=== PATIENT | male | born 1995 | race Caucasian/White ===

== ENCOUNTER 2020-09-18 11:27 | Emergency (ER) | payer MEDICAID ==
[~2020-09-18] VITALS: Ht 188 cm; Wt 90.9 kg
[~2020-09-18 11:27] MED LIST: BUMEX 1MG TA1 MG/TA1 PO; CIPRO 500MG TA500 MG PO; KLOR-CON M2020 MEQ PO; NEURONTIN300 MG/CAP PO; PREDNISONE20 MG PO; RESTORIL 1515 MG/CAP PO; ULTRAM 50MG TAB50 MG PO
[2020-09-18 12:48] LABS: MEAN CELL VOLUME 65 fl (80.0-100.0); MEAN CORPUSCULAR HGB CONC 28 g/dl (33.0-37.0); PLATELET COUNT 185 K/mm3 (130-400); RED BLOOD COUNT 3.87 M/mm3 (4.20-5.60); REDCELL DISTRIBUTION WIDTH-CV 23.4 % (11.5-14.5)
[2020-09-18 12:49] LABS: ALBUMIN 2.9 gm/dL (3.5-5.0); BILIRUBIN,TOTAL 0.7 mg/dL (0.0-1.0); CALCIUM 8.3 mg/dL (8.4-10.2); CREATININE, serum 0.87 (0.66-1.25); POTASSIUM 3.3 mmol/L (3.4-5.0); TOTAL PROTEIN 6.5 gm/dL (6.4-8.2)
[2020-09-18 12:56] LABS: HEMATOCRIT 25.3 % (42.0-52.0); HEMOGLOBIN 7.1 g/dl (13.5-18.0); MEAN CORPUSCULAR HEMOGLOBIN 18 pg (27.0-31.0)
[2020-09-18 13:48] LABS: BAND 14 % (0-10); LYMPHOCYTE 16 % (20.0-51.0); NEUTROPHILS 67 % (42.0-75.2)
[2020-09-18 13:51] LABS: ANISOCYTOSIS 3+; HYPOCHROMIA 3+; MICROCYTOSIS 2+; PLATELET ESTIMATE NORMAL (NORMAL)
[2020-09-18 17:02] VITALS: BP 118/75; PULSE 121; TEMP 100.7
[2020-09-18 17:09] VITALS: BP 131/72; PULSE 116; TEMP 100.5
[2020-09-18 17:14] VITALS: BP 134/70; PULSE 121; TEMP 100.4
[2020-09-18 17:20] VITALS: BP 126/71; PULSE 117; TEMP 99.3
[2020-09-18 17:25] VITALS: BP 132/70; PULSE 117; TEMP 99.2
[2020-09-18 17:53] VITALS: BP 126/73; PULSE 73
== END 2020-09-18 18:10 | disposition short-term general hospital (02) ==
LOC: COL.ER 11:27
PROVIDERS: Family Medicine
DX: L02.01 Cutaneous abscess of face (principal); L03.211 Cellulitis of face; R60.0 Localized edema; T81.49XA Infection following a procedure, other surgical site, initial encounter; F17.210 Nicotine dependence, cigarettes, uncomplicated
CPT/HCPCS: J2543; J3370; J7050; J7120; P9016

== ENCOUNTER 2020-10-23 17:52 | Emergency (ER) | payer MEDICAID ==
[2020-10-23 18:24] LABS: BASO % 0.1 % (0.0-2.0); EOS % 0.3 % (0-4.0); GRAN # 6.2 (1.4-6.5); GRAN % 84.8 % (42.2-75.2); LYMPH # 0.5 (1.2-3.4); LYMPH % 6.7 % (20.0-51.0); MEAN CELL VOLUME 69 fl (80.0-100.0); MEAN CORPUSCULAR HGB CONC 28 g/dl (33.0-37.0); MONO # 0.5 (0.1-0.6); MONO % 7.4 % (1.7-9.3); PLATELET COUNT 498 K/mm3 (130-400); RED BLOOD COUNT 3.87 M/mm3 (4.20-5.60); REDCELL DISTRIBUTION WIDTH-CV 25.4 % (11.5-14.5)
[2020-10-23 18:29] LABS: HEMATOCRIT 26.7 % (42.0-52.0); HEMOGLOBIN 7.4 g/dl (13.5-18.0); MEAN CORPUSCULAR HEMOGLOBIN 19 pg (27.0-31.0)
[2020-10-23 18:37] LABS: INR 1.3 (0.8-3.0)
[2020-10-23 18:40] LABS: ALBUMIN 3.7 gm/dL (3.5-5.0); BILIRUBIN,TOTAL 0.5 mg/dL (0.0-1.0); CALCIUM 9.3 mg/dL (8.4-10.2); CREATININE, serum 0.79 (0.66-1.25); POTASSIUM 4.2 mmol/L (3.4-5.0); TOTAL PROTEIN 7.2 gm/dL (6.4-8.2)
[2020-10-23 19:25] LABS: COLLECTION METHOD CLEAN CATCH
[2020-10-23 19:49] LABS: MUCOUS Present /lpf; PH 6 (5-8); SQUAMOUS EPITHELIAL None Seen /hpf; URINE APPEARANCE Clear; URINE BACTERIA None Seen /hpf; URINE BILIRUBIN Negative (NEGATIVE); URINE BLOOD Negative (NEGATIVE); URINE COLOR Yellow; URINE GLUCOSE Negative (NEGATIVE); URINE KETONE Negative (NEGATIVE); URINE LEUKOCYTE ESTERASE Negative (NEGATIVE); URINE NITRATE Negative (NEGATIVE); URINE PROTEIN(semi-quant) Negative (NEGATIVE); URINE RBC 0-2 /hpf; URINE UROBILINOGEN Negative (NEGATIVE)
[2020-10-23 21:13] VITALS: BP 121/68; PULSE 108; TEMP 98.2
== END 2020-10-23 21:13 | disposition home or self-care (01) ==
LOC: COL.ER 17:52
PROVIDERS: Physician Assistant
DX: S21.109A Unspecified open wound of unspecified front wall of thorax without penetration into thoracic cavity, initial encounter (principal); D64.9 Anemia, unspecified; F17.210 Nicotine dependence, cigarettes, uncomplicated; Z48.89 Encounter for other specified surgical aftercare; Z98.890 Other specified postprocedural states
CPT/HCPCS: J2543; J3010; J3370; J7030; J7050